=== PATIENT | male | born 1935 | race Caucasian/White ===

== ENCOUNTER 2019-05-21 23:16 | Inpatient (IN) | payer MEDICARE ==
[2019-05-21 23:46] LABS: #Basophils 0.1 thou/uL (0.0-0.2); #Eosinphils 0.1 thou/uL (0.0-0.7); #Lymphocytes 0.7 thou/uL (1.20-3.40); #Monocytes 1.1 thou/uL (0.11-0.59); #Neutrophils 10.8 thou/uL (1.40-6.50); %Basophils 0.4 % (0.0-1.0); %Lymphocytes 5.3 % (21.0-51.0); %Monocytes 8.4 % (0.0-10.0); %Neutrophils 84.9 % (42.0-75.0); Hemoglobin 14.7 g/dL (14.0-18.0); Mean Corpuscular HGB CONC 33.3 g/dL (32.0-36.0); Mean Corpuscular Volume 92.8 fL (78.0-98.0); Mean Platelet Volume 7.6 fL (7.4-10.4); Platelet Count 212 thou/uL (130-400); RBC Distribution Width 12.4 % (11.5-14.5); Red Blood Cell (RBC) Count 4.75 mill/uL (4.70-6.10); White Blood Cell (WBC) Count 12.7 thou/uL (4.8-10.8)
--- NOTE | 2019-05-21 23:48 | RAD ---
XR Chest 1 View Portable HISTORY: Flu symptoms cough and fever COMPARISON: None. FINDINGS: Heart size is within normal limits for portable technique. There are atherosclerotic change s of the aorta. The lungs are clear of infiltrates. IMPRESSION: No active intrathoracic disease.
[2019-05-21] MEDS ORDERED: cefTRIAXone\\ROCEPHIN 2 GM VIAL ONE (23:53)
[2019-05-21] MEDS ORDERED: Azithromycin 500 MG VIAL ONE (23:53)
--- NOTE | 2019-05-22 00:06 | CT ---
CT Brain WO Con HISTORY: Fall with head injury. COMPARISON: None. FINDINGS: There is generalized ventricular and sulcal prominence. There are no signs of intracerebral hemorrhage or extra-axial fluid collections. The mastoid air cells are clear. Extensive mucosal changes in the maxillary and ethmoid air cells and lesser changes in the sphenoid air cells are noted . IMPRESSION: No acute intracranial abnormalities.
[2019-05-22 00:09] LABS: ALT (SGPT) 26 U/L (8-55); AST (SGOT) 22 U/L (5-34); Albumin 3.9 g/dL (3.4-4.8); Alkaline Phosphatase 57 U/L (40-110); Anion Gap 13 mmol/L (10-20); BUN (Urea Nitrogen) 34 mg/dL (8.4-25.7); Bilirubin, Total 0.6 mg/dL (0.2-1.2); Calc. Creatinine Clearance 0 mL/min (70-130); Calcium 8.8 mg/dL (7.8-10.44); Carbon Dioxide 21 mmol/L (23-31); Chloride 109 mmol/L (98-107); Estimated GFR-MDRD 33; Globulin 2.5 g/dL (2.4-3.5); Glucose 123 mg/dL (83-110); Potassium 4.6 mmol/L (3.5-5.1); Protein, Total 6.4 g/dL (5.8-8.1); Sodium 138 mmol/L (136-145)
[2019-05-22 00:09] LABS: Bacteria/HPF None Seen HPF (None Seen); Bilirubin Negative (Negative); Blood, Urine Trace (Negative); Clarity Clear (Clear); Glucose, Urine (Dipstick) Normal (Negative); Leukocyte Negative Leu/uL (Negative); Nitrite Negative (Negative); Protein, Urine (Dipstick) 30 mg/dL (Neg-Trace); RBC/HPF 0-3 HPF (0-3); Squamous Epithelial None Seen HPF (0-3); Urobilinogen Normal mg/dL (Less than 2); WBC/HPF 0-3 HPF (0-3)
[2019-05-22] MEDS ORDERED: Acetaminophen 500 MG TAB ONE (00:10)
[2019-05-22] MEDS ORDERED: Azithromycin 500 MG VIAL ONE (00:33)
--- NOTE | 2019-05-22 00:53 | PDOC.FPRHP ---
- History of Present Illness Chief Complaint: flu History of Present Illness: 83 yo male recently diagnosed with influenza A at urgent care presents with cough, weakness, and frequent falls since Saturday when he was diagnosed with the flu. He came in to the ER tonrachelle because he fell at home and the family couldn't get him up off the floor. He says he did not lose consciousness with the falls, but the son says that his father doesn't remember. He fell, stumbling getting out of the shower on Saturday night. The second fall, he was sitting on a stool by his bed, and was unable to get up and fell down. Tonight he woke up to use the bathroom and he fell walking to the bathroom. Fell on his back. He says he didn't have the strength to get up. He endorses coughing and some is productive of phlegm. He denies fevers but endorses chills. He denies feeling short of breath. Son endorses that he shuffles his feet with walking, does not use a cane. Reportedly has outpatient PT. ED Course: azithro, rocephin, tylenol, NS - Allergies/Adverse Reactions Allergies Allergy/AdvReac Type Severity Reaction Status Date / Time Penicillins Allergy Verified 05/22/19 02:59 - Home Medications Medication Instructions Recorded Confirmed Type Lisinopril 1 tab PO HS 05/22/19 05/22/19 History Simvastatin [Zocor] 1 tab PO HS 05/22/19 05/22/19 History Albuterol Sulfate [Proair 90 mcg IH Q4H PRN #1 inhaler 05/23/19 Rx Digihaler] Oseltamivir Phosphate 30 mg PO BID 3 Days #5 capsule 05/23/19 Rx Tiotropium [place] [Spiriva] 2 puff IH DAILY #1 inhaler 05/23/19 Rx predniSONE 40 mg PO QAM-WM #3 tab 05/23/19 Rx - History PMHx: HTN, HLD, AAA s/p repair PSHx: Knee replacement (left), right hip replacement FHx: non-contributory Social:hx of smoking, 1/2 ppd; no etoh or drug use - Review of Systems General: denies: fever/chills, weight/appetite/sleep changes Eyes: denies: eye pain, vision changes ENT: denies: nasal congestion, rhinorrhea Respiratory: reports: cough, shortness of breath Cardiovascular: denies: chest pain, edema Gastrointestinal: denies: nausea, vomiting, diarrhea Genitourinary: denies: incontinence Skin: denies: lesions, jaundice Musculoskeletal: denies: tenderness, stiffness Neurological: reports: weakness. denies: syncope, seizure Psychological: denies: anxiety, depression - Vital signs BP: 96/78 HR: 80 RR: Tmax: Pox: 95% on 2L Wt: 115.66kg - Physical Exam Constitutional: NAD, awake, alert and oriented HEENT: normocephalic and atraumatic, MMM Neck: supple, FROM Chest: no-tender to palpation, no lesions Heart: RRR, normal S1/S2 Lungs: other (wheezing LLL) Abdomen: soft, non-tender Musculoskeletal: normal structure, ROM grossly normal Neurological: no focal deficit, normal sensation Skin: no rash/lesions, good turgor Heme/Lymphatic: no unusual bruising or bleeding, no purpura Psychiatric: normal mood and affect, good judgment and insight FMR H&P: Results - Labs Result Diagrams: 05/23/19 05:02 05/23/19 05:02 Lab results: WBC 12.7 thou/uL (4.8-10.8) H 05/21/19 23:37 Hgb 14.7 g/dL (14.0-18.0) 05/21/19 23:37 Hct 44.1 % (42.0-52.0) 05/21/19 23:37 MCV 92.8 fL (78.0-98.0) 05/21/19 23:37 Plt Count 212 thou/uL (130-400) 05/21/19 23:37 Neutrophils % 84.9 % (42.0-75.0) H 05/21/19 23:37 Sodium 138 mmol/L (136-145) 05/21/19 23:37 Potassium 4.6 mmol/L (3.5-5.1) 05/21/19 23:37 Chloride 109 mmol/L (98-107) H 05/21/19 23:37 Carbon Dioxide 21 mmol/L (23-31) L 05/21/19 23:37 BUN 34 mg/dL (8.4-25.7) H 05/21/19 23:37 Creatinine 1.94 mg/dL (0.7-1.3) H 05/21/19 23:37 Glucose 123 mg/dL (83-110) H 05/21/19 23:37 Lactic Acid 2.1 mmol/L (0.5-2.2) 05/21/19 23:37 Calcium 8.8 mg/dL (7.8-10.44) 05/21/19 23:37 Total Bilirubin 0.6 mg/dL (0.2-1.2) 05/21/19 23:37 AST 22 U/L (5-34) 05/21/19 23:37 ALT 26 U/L (8-55) 05/21/19 23:37 Alkaline Phosphatase 57 U/L (40-110) 05/21/19 23:37 Serum Total Protein 6.4 g/dL (5.8-8.1) 05/21/19 23:37 Albumin 3.9 g/dL (3.4-4.8) 05/21/19 23:37 Urine Ketones Negative mg/dL (Negative) 05/21/19 23:50 Urine Blood Trace (Negative) A 05/21/19 23:50 Urine Nitrite Negative (Negative) 05/21/19 23:50 Ur Leukocyte Esterase Negative [place]/uL (Negative) 05/21/19 23:50 Urine RBC 0-3 HPF (0-3) 05/21/19 23:50 Urine WBC 0-3 HPF (0-3) 05/21/19 23:50 Ur Squamous Epith Cells None Seen HPF (0-3) 05/21/19 23:50 Urine Bacteria None Seen HPF (None Seen) 05/21/19 23:50 - Radiology Interpretation Chest x-ray Status: report reviewed by me (no active intrathoracic disease) CT scan - head Status: report reviewed by me (no acute intracranial processes) FMR H&P: A/P - Problem List (1) Sepsis Status: Acute Code(s): A41.9 - SEPSIS, UNSPECIFIED ORGANISM (2) OLU (acute kidney injury) Status: Acute Code(s): N17.9 - ACUTE KIDNEY FAILURE, UNSPECIFIED (3) Influenza A Status: Acute Code(s): J10.1 - FLU DUE TO OTH IDENT INFLUENZA VIRUS W OTH RESP MANIFEST (4) Generalized weakness Status: Acute Code(s): R53.1 - WEAKNESS (5) Frequent falls Status: Acute Code(s): R29.6 - REPEATED FALLS (6) HTN (hypertension) Status: Chronic Code(s): I10 - ESSENTIAL (PRIMARY) HYPERTENSION (7) HLD (hyperlipidemia) Status: Chronic Code(s): E78.5 - HYPERLIPIDEMIA, UNSPECIFIED (8) History of AAA (abdominal aortic aneurysm) repair Status: Chronic Code(s): Z98.890 - OTHER SPECIFIED POSTPROCEDURAL STATES - Plan Patient is an 83M with PMHx of HTN, HLD, AAA that is admitted for: #Sepsis 2/2 influenza A -tested positive for influenza A earlier this week -tachycardic, tachypnic, and febrile on presentation -WBC 12.7, wnl -CXR: no active intrathoracic disease -started on rocephin and azithro in ED for poss CAP; procal 0.19, will hold off on continuing these meds for now as condition likely due to influenza A -started on IVF in ED, continue #Generalized weakness #Frequent falls -patient has fallen 3 times this week -Brain CT neg for acute bleed -patient cannot remember the falls, unsure if loss of consciousness -likely 2/2 sepsis from influenza A though cannot rule out syncope -will monitor for arrhythmias on telemetry -PT/OT consulted -orthostatic vitals pending #OLU -uncertain baseline -started on IVF; will continue to monitor #HTN -not on meds at home; BP 117/71 in ED -will continue to monitor #HLD -not currently on meds -will order FLP #Hx of AAA -aware, not complaining of chest pain at this time Diet: DVTppx: SCDS due to patient's increased fall risk Dispo: inpatient for IVF and respiratory support for sepsis 2/2 influenza A; will monitor for arrhythmias and workup orthostatic hypotension for possible syncope; PT/OT consulted CODE: Full PCP: city call FMR H&P: Upper Level - Plan Date/Time: 05/22/19 0052 83 yo male presents with cough and frequent falls, admitted for sepsis 2/2 influenza vs CAP. He has been afebrile here, but tachycardic, and tachypnic with a wbc on 12.4. His chest xray was read normal, howeve appears to have some blunting at the costophrenic angles. We admitted him to inpatient medicine and restarted his tamiflu. He was given rocephin and azithro in the ER. We will get a procal to assess further if there is an underlying bacterial co-infection. In regard to his frequent falls, he is likely deconditioned d/t having the flu. We will continue to fluid resuscitate him overnight and repeat labs in the am. He was found to have an OLU, although I am unclear of his baseline. We will watch him closely. Saji Ochoa MD, PGY-3, have evaluated this patient and agree with findings/ plan as outlined by paid intern resident. Pertinent changes/additions are listed here. Addendum - Attending - Attending Attestation Date/Time: 05/23/19 4740 I personally evaluated the patient and discussed the management with Selena Duran, and Jose I agree with the History, Examination, Assessment and Plan documented above with any addition or exceptions noted below. HD#0 Patient much improved since admission. Now not requiring IVFs. Nonill appearing at present. Will start treatment for co-morbid COPD ex. Continue tamiflu. No need for antibiotics. Possible home in AM if no O2 requirements throughout the day. Jim
[2019-05-22 02:44] LABS: Lactic Acid 0.8 mmol/L (0.5-2.2)
[2019-05-22] MEDS ORDERED: Acetaminophen 325 MG TAB PO PRN ×2 (03:00→04:13)
[2019-05-22] MEDS ORDERED: Ondansetron PF 4 MG/2 ML Vial IVP PRN (03:00)
[2019-05-22] MEDS ORDERED: Ondansetron ODT 4 MG TAB SL PRN (03:00)
[2019-05-22] MEDS ORDERED: Oseltamivir 75 MG CAP PO SCH (03:15)
[2019-05-22] MEDS ORDERED: Calcium Carbonate 500 MG ChewTAB PO PRN (04:13)
[2019-05-22] MEDS: Sodium Chloride 0.9% 1,000 ML IV SCH ×2 (04:41→09:50)
[2019-05-22 06:14] VITALS: BMI 35.5
[2019-05-22 08:53] LABS: Cardiac Risk 3.1 (Less than 4.5)
[2019-05-22] MEDS ORDERED: predniSONE 20 MG TAB PO SCH (09:30)
[2019-05-22 11:52] LABS: Anion Gap 12 mmol/L (10-20); BUN (Urea Nitrogen) 27 mg/dL (8.4-25.7); Calc. Creatinine Clearance 57 mL/min (70-130); Calcium 8.1 mg/dL (7.8-10.44); Carbon Dioxide 21 mmol/L (23-31); Chloride 111 mmol/L (98-107); Estimated GFR-MDRD 43; Glucose 91 mg/dL (83-110); Potassium 4.4 mmol/L (3.5-5.1); Sodium 140 mmol/L (136-145)
[2019-05-22] MEDS ORDERED: Atorvastatin Calcium 20 MG TAB PO SCH (21:00)
[2019-05-22] MEDS: Oseltamivir 75 MG CAP PO SCH (21:59)
[2019-05-23 05:16] LABS: #Lymphocytes 1.4 thou/uL (1.20-3.40); #Monocytes 0.8 thou/uL (0.11-0.59); #Neutrophils 7.1 thou/uL (1.40-6.50); %Eosinophils 0.2 % (0.0-10.0); %Lymphocytes 14.8 % (21.0-51.0); %Monocytes 8.6 % (0.0-10.0); %Neutrophils 76.4 % (42.0-75.0); Hemoglobin 12.5 g/dL (14.0-18.0); Mean Corpuscular Volume 93.9 fL (78.0-98.0); Mean Platelet Volume 7.9 fL (7.4-10.4); Platelet Count 189 thou/uL (130-400); RBC Distribution Width 12.4 % (11.5-14.5); Red Blood Cell (RBC) Count 4.15 mill/uL (4.70-6.10); White Blood Cell (WBC) Count 9.4 thou/uL (4.8-10.8)
[2019-05-23 05:39] LABS: Anion Gap 17 mmol/L (10-20); BUN (Urea Nitrogen) 32 mg/dL (8.4-25.7); Calc. Creatinine Clearance 51 mL/min (70-130); Calcium 8.1 mg/dL (7.8-10.44); Carbon Dioxide 17 mmol/L (23-31); Chloride 110 mmol/L (98-107); Estimated GFR-MDRD 38; Glucose 113 mg/dL (83-110); Potassium 4.7 mmol/L (3.5-5.1); Sodium 139 mmol/L (136-145)
[2019-05-23] MEDS ORDERED: predniSONE 20 MG TAB PO SCH (08:00)
[2019-05-23] MEDS: Oseltamivir 75 MG CAP PO SCH (09:13)
--- NOTE | 2019-05-23 10:07 | PDOC.FM ---
- Subjective Subjective: Doing well on RA, reports some intermittent light headedness. no other complaints at this time. - Objective Vital Signs & Weight: Vital Signs (12 hours) Temp Pulse Resp BP Pulse Ox 05/23/19 07:54 97.4 F L 62 20 105/50 L 95 05/23/19 06:40 66 18 05/23/19 05:15 93/49 L 05/23/19 04:11 96 05/23/19 03:25 97.4 F L 59 L 16 90/53 L 96 05/22/19 23:49 97.7 F 59 L 14 103/53 L 95 05/22/19 23:47 94 L Weight Weight 115.666 kg I&O: 05/22/19 05/23/19 05/24/19 06:59 06:59 06:59 Output Total 575 Balance -575 Result Diagrams: 05/23/19 05:02 05/23/19 05:02 Phys Exam - Physical Examination Constitutional: NAD HEENT: moist MMs, sclera anicteric Neck: no JVD, supple Respiratory: no wheezing, clear to auscultation bilateral Cardiovascular: RRR, no significant murmur Gastrointestinal: soft, non-tender Musculoskeletal: no edema, pulses present Neurological: normal sensation, moves all 4 limbs Psychiatric: normal affect, A&O x 3 Skin: no rash, normal turgor Dx/Plan (1) Sepsis Code(s): A41.9 - SEPSIS, UNSPECIFIED ORGANISM Status: Acute (2) Frequent falls Code(s): R29.6 - REPEATED FALLS Status: Acute (3) Generalized weakness Code(s): R53.1 - WEAKNESS Status: Acute (4) Influenza A Code(s): J10.1 - FLU DUE TO OTH IDENT INFLUENZA VIRUS W OTH RESP MANIFEST Status: Acute (5) History of AAA (abdominal aortic aneurysm) repair Code(s): Z98.890 - OTHER SPECIFIED POSTPROCEDURAL STATES Status: Chronic (6) COPD exacerbation Code(s): J44.1 - CHRONIC OBSTRUCTIVE PULMONARY DISEASE W (ACUTE) EXACERBATION Status: Acute - Plan Plan: Patient is an 83M with PMHx of HTN, HLD, AAA that is admitted for: Sepsis 2/2 influenza A A- resolved, SIRS criteria no longer met. Pt still coughing but no SOB. CXR: no active intrathoracic disease. s/p rocephin and azithro in ED P- continue tamiflu -DC today COPD exacerbation A- improved, pt now stable on RA P- DC today with plan to complete 5 days prednisone -will send with albuterol inhaler as well as spiriva Frequent falls, possible syncope A- likely 2/2 sepsis/copd exacerbation. CT brain wnl, ECHO normal, no arrhythmias while on tele. Pt has been cleared by PT/OT P- discussed fall precautions and ER precautions with pt CKD -pt reports today he has hx of CKD, last GFR was 48. Pt encouraged to drink at least 64fl oz daily Hx of AAA -aware, not complaining of chest pain at this time dispo dc today CODE: Full
[2019-05-23 12:14] VITALS: BP 130/57; TEMP 97.6
--- NOTE | 2019-05-23 12:51 | PRG ---
DATE OF SERVICE: 05/23/2019 Please see the note from Dr. Garcia, for which I agree. The patient was seen, evaluated, discussed, and examined with the residents by bedside. This gentleman is now 2nd hospital day for COPD exacerbation, brought on by influenza A. Initially, it was deemed sepsis, but I see no evidence of that and is on Tamiflu, is already improving on prednisone, doing DuoNebs as needed. He is having some near syncopal spells, a little kind of feeling lightheaded now as when he is getting up and walking. It sounds like that is improving. CT of the brain was normal. The plan is if he is able to ambulate on his own and strength is up, we should be able to discharge him later today as long as he has been able to wean off the oxygen. Job ID: [id number]
--- NOTE | 2019-05-25 03:26 | PQF ---
ETHAN VILLATORO RUSSEL B MD [id number] [facility] [place]-204 [id number] CLINICAL DOCUMENTATION CLARIFICATION FORM: POST DISCHARGE Addendum to original discharge summary date: ____ Late entry note date: __ DATE: 05/25/2019 ATTN: Evens Nettles Please exercise your independent, professional judgment in responding to the clarification form. Clinical indicators are provided on the bottom of this form for your review Please check appropriate box(s) to clarify if the following diagnosis has been ruled in or ruled out: PNEUMONIA [ ] Ruled in diagnosis [ ] Continue to treat [ ] Resolved [ ] Ruled out diagnosis [ ] Cannot rule out diagnosis [ ] Other diagnosis [ ] Unable to determine For continuity of documentation, please document condition throughout progress notes and discharge summary. Thank You. CLINICAL INDICATORS - SIGNS / SYMPTOMS / LABS ED Notes 05/21 "Pneumonia" HP 05/21 "possible CAP" HP 05/21 "sepsis / influenza A" HP 05/21 "presents with cough and weakness" HP 05/21 "Lungs: Wheezing" HP 05/21 "coughing and some is productive phlegm" Chest Xray 05/20 "the lungs are clear of infiltrates" 05/21 "tachycardic, tachypneic and febrile on presentation" Labs WBC: 05/20=12.7 05/22=9.4 RISK FACTORS HP 05/21-83 years old male HP 05/21-Influenza A HP 05/21-Former Smoker PN 05/22-CKD HP 05/21-Sepsis TREATMENTS Collected 05/20-Chest Xray HP 05/21-IVF MAR 05/20-Rocephin 2gm IV MAY 11-Azithromycin 500mg IV 2014 [employer] All Rights Reserved [email or web address] (This form is maintained as a part of the permanent medical record) [facility]
--- NOTE | 2019-05-25 03:29 | PQF ---
ETHAN VILLATORO RUSSEL B MD [id number] [facility] [place]-204 [id number] CLINICAL DOCUMENTATION CLARIFICATION FORM: POST DISCHARGE Addendum to original discharge summary date: ____ Late entry note date: __ DATE: 05/25/2019 ATTN: Evens Nettles Please exercise your independent, professional judgment in responding to the clarification form. Clinical indicators are provided on the bottom of this form for your review Please check appropriate box(s): Conflicting documentation was noted in the Medical Record, please clarify if patient is being treated/monitored for: [ ] No evidence of sepsis [ ] Sepsis due to Influenza A [ ] Other diagnosis [ ] Unable to determine For continuity of documentation, please document condition throughout progress notes and discharge summary. Thank You. CLINICAL INDICATORS - SIGNS / SYMPTOMS/ LABS HP 05/21 "sepsis 2/2 influenza A" PN 05/22 "Initially it was deemed sepsis, but i see no evidence of that" PN 05/21 "frequent fall possible syncope-likely 2/2 sepsis" HP 05/21 "tachycardic, tachypneic and febrile on presentation" HP 05/21 "OLU" Labs WBC: 05/20=12.7 05/22=9.4 Labs Lactate acid: 05/20=2.1 05/21=0.8 Labs Procalcitonin: 05/21=0.19 RISK FACTORS HP 05/21-83 years old male HP 05/21-Influenza A HP 05/21-Former Smoker PN 05/22-CKD TREATMENT Collected 05/20-Chest Xray HP 05/21-IVF MAR 05/20-Rocephin 2gm IV MAR 05/20-Azithromycin 500mg IV (This form is maintained as a part of the permanent medical record) 2014 [employer]. All Rights Reserved [email or web address]
== END 2019-05-23 14:48 | disposition home or self-care (01) | DRG 872 ==
LOC: ERS 23:16 → T4-A 05-22 01:19 → 2SE 05-22 03:49
PROVIDERS: ADMIT Student in an Organized Health Care Education/Training Program; ATTEND Student in an Organized Health Care Education/Training Program
DX: A41.9 Sepsis, unspecified organism (principal); N17.9 Acute kidney failure, unspecified; J44.1 Chronic obstructive pulmonary disease with (acute) exacerbation; R29.6 Repeated falls; E78.5 Hyperlipidemia, unspecified; Z96.652 Presence of left artificial knee joint; Z96.641 Presence of right artificial hip joint; J10.1 Influenza due to other identified influenza virus with other respiratory manifestations; I12.9 Hypertensive chronic kidney disease with stage 1 through stage 4 chronic kidney disease, or unspecified chronic kidney disease; N18.9 Chronic kidney disease, unspecified; Z88.0 Allergy status to penicillin; Z79.51 Long term (current) use of inhaled steroids; Z79.52 Long term (current) use of systemic steroids; Z79.899 Other long term (current) drug therapy; Z87.891 Personal history of nicotine dependence
CPT/HCPCS: 36415; 70450; 71045; 80048; 80053; 80061; 81003; 81015; 83605; 84145; 85025; 87040; 87086; 87804; 93306; 94640; 94760; 96365; 96367; J0456; J0696; J7512; J7620

== ENCOUNTER 2022-10-24 10:12 | Outpatient (CLI) | payer MEDICARE | END 2022-10-24 10:13 | disposition home or self-care (01) | LOC: RAD 10:12 | PROVIDERS: ATTEND Internal Medicine Critical Care Medicine | DX: R06.00 Dyspnea, unspecified (principal); J98.4 Other disorders of lung | CPT/HCPCS: 71046 ==